=== PATIENT | female | born 2000 | race Caucasian/White ===

== ENCOUNTER 2020-04-16 12:42 | Emergency (ER) | payer SELFPAY ==
[~2020-04-16] VITALS: Ht 162.6 cm; Wt 76.2 kg
[2020-04-16 13:06] VITALS: Ht 162.6 cm; Wt 76.2 kg
[2020-04-16 15:20] LABS: BASOPHIL % 0.3 % (0-2); PLATELET COUNT 274 x10^3mcL (130-400)
[2020-04-16 15:23] LABS: RED CELL DISTRIBUTION WIDTH 15.3 % (11.5-14.5)
[2020-04-16 15:39] LABS: CALCIUM 9.1 mg/dL (8.5-10.1); CHLORIDE SERUM 103 mmol/L (98-107); CREATININE SERUM 0.6 mg/dL (0.6-1.0); GFR1 > 60 mL/min; GLUCOSE SERUM 81 mg/dL (74-106); SODIUM SERUM 138 mmol/L (136-145)
[2020-04-16 15:43] LABS: ALKALINE PHOSPHATASE 57 U/L (46-116); ALT/SGPT 26 U/L (14-59); AST/SGOT 15 U/L (15-37); BILIRUBIN TOTAL 0.41 mg/dL (0.20-1.00); TOTAL PROTEIN, SERUM 7.4 g/dL (6.4-8.2)
[2020-04-16 15:44] LABS: ALBUMIN 3.3 g/dL (3.4-5.0)
[2020-04-16 15:45] VITALS: BP 128/76
== END 2020-04-16 15:45 | disposition home or self-care (01) ==
LOC: ED 12:42
PROVIDERS: Emergency Medicine
DX: O26.892 Other specified pregnancy related conditions, second trimester (principal); R10.10 Upper abdominal pain, unspecified; R11.0 Nausea; Z3A.14 14 weeks gestation of pregnancy